=== PATIENT | male | born 2000 | race African-American/Black ===

== ENCOUNTER 2024-01-31 18:30 | Inpatient (IN) | payer BC ==
[2024-01-31] MEDS ORDERED: CEFTRIAXONE 1 G/50 ML PREMIX 50 ML IVPB ONE (20:00)
[2024-01-31] MEDS: ACETAMINOPHEN 1000 MG/100 ML BAG IVPB ONE (20:11)
[2024-01-31] MEDS: CEFTRIAXONE 1 G/50 ML PREMIX 50 ML IVPB ONE (20:11)
[2024-01-31] MEDS: SODIUM CHLORIDE 0.9% 500 ML INFUS.BAG IV ONE (20:11)
[2024-01-31 20:16] LABS: BASO % 0.4 % (0-2.0); EOS % 1.2 % (0-4.5); LYMPH % 11.1 % (8-40); MCH 27.3 pg (25.7-33.7); MCHC 33.2 g/dl (32.0-35.9); MEAN CELL VOLUME 82.1 fl (80-96); MEAN PLT VOLUME 9.2 fl (7.5-11.1); MONO % 7.6 % (3.8-10.2); NEUT % 79.7 % (42.8-82.8); PLATELET COUNT 420 10^3/uL (134-434); RBC 4.38 M/mm3 (4.00-5.60); RDW 13.1 % (11.9-15.9); WHITE BLOOD COUNT 18.9 K/mm3 (4.0-10.0)
[2024-01-31 20:20] LABS: VENOUS BASE EXCESS 1.9 mmol/L (-2-2); VENOUS O2 SATURATION 57.7 % (70-80); VENOUS PCO2 40.5 mmHg (38-52); VENOUS PH 7.43 (7.310-7.410)
[2024-01-31 20:49] LABS: POTASSIUM 4.4 mmol/L (3.5-5.1)
[2024-01-31 20:54] LABS: CALCIUM 9.3 mg/dL (8.5-10.1)
[2024-01-31 20:55] LABS: ALBUMIN 2.9 g/dl (3.4-5.0); BLOOD UREA NITROGEN 8.2 mg/dL (7-18)
[2024-01-31 20:59] LABS: BILIRUBIN,TOTAL 1.3 mg/dL (0.2-1); TOT PROT 7.3 g/dl (6.4-8.2)
[2024-01-31] MEDS ORDERED: DOXYCYCLINE HYCLATE 100 MG VIAL ONE (21:18)
[2024-01-31] MEDS: DOXYCYCLINE INJECTION 100 MG in DEXTROSE 5%-WATER 100 ML IVPB ONE (21:24)
[2024-02-01 00:34] LABS: PH,URINE 6.5 (5.0-8.0); URINE APPEARANCE CLEAR; URINE BILIRUBIN NEGATIVE (NEGATIVE); URINE COLOR YELLOW; URINE GLUCOSE (UA) NEGATIVE (NEGATIVE); URINE KETONE NEGATIVE (NEGATIVE); URINE LEUK ESTERASE NEGATIVE (NEGATIVE); URINE NITRITE NEGATIVE (NEGATIVE); URINE PROTEIN TRACE (NEGATIVE)
[2024-02-01] MEDS ORDERED: ENOXAPARIN NA (PORCINE) 40 MG/0.4 ML DISP.SYRIN SQ ONE (00:54)
[2024-02-01] MEDS: ENOXAPARIN NA (PORCINE) 40 MG/0.4 ML DISP.SYRIN SQ SCH (00:56)
[2024-02-01] MEDS ORDERED: MELATONIN 5 MG TABLETS PO PRN (01:09)
[2024-02-01] MEDS: guaiFENesin 200 MG/10 ML 10 ML UNIT-DOSE CUPS PO ONE (03:13)
[2024-02-01] MEDS: ACETAMINOPHEN 325 MG TABLET (FP) PO PRN (06:14)
[2024-02-01] MEDS: ALBUTEROL SO4 2.5/IPRATROPIUM 0.5 INH SOL 3 ML VIAL.NEB. NEB PRN (07:38)
[2024-02-01 08:45] LABS: BASO % 0.5 % (0-2.0); HEMATOCRIT 34.5 % (35.4-49); HEMOGLOBIN 11.4 GM/dL (11.7-16.9); LYMPH % 8.4 % (8-40); MCHC 32.9 g/dl (32.0-35.9); MEAN CELL VOLUME 82.2 fl (80-96); MEAN PLT VOLUME 9.9 fl (7.5-11.1); MONO % 6.4 % (3.8-10.2); NEUT % 82.7 % (42.8-82.8); PLATELET COUNT 392 10^3/uL (134-434); RDW 13.3 % (11.9-15.9); WHITE BLOOD COUNT 18.2 K/mm3 (4.0-10.0)
[2024-02-01 09:02] LABS: POTASSIUM 4.4 mmol/L (3.5-5.1)
[2024-02-01 09:03] LABS: MAGNESIUM 2.3 mg/dL (1.8-2.4)
[2024-02-01 09:04] LABS: ALBUMIN 2.8 g/dl (3.4-5.0)
[2024-02-01 09:07] LABS: BLOOD UREA NITROGEN 8.1 mg/dL (7-18); CALCIUM 9.2 mg/dL (8.5-10.1); CREATININE 0.8 mg/dL (0.55-1.3)
[2024-02-01 09:08] LABS: PHOSPHOROUS 4.4 mg/dL (2.5-4.9); TOT PROT 6.8 g/dl (6.4-8.2)
[2024-02-01 09:10] LABS: BILIRUBIN,TOTAL 1.2 mg/dL (0.2-1)
[2024-02-01] MEDS: methylPREDNISolone NA SUCC 40 MG/1 ML VIAL IVPUSH SCH (10:09)
[2024-02-01 14:10] LABS: HIV INTERPRETATION NEGATIVE (NEGATIVE)
[2024-02-01] MEDS: guaiFENesin 200 MG/10 ML 10 ML UNIT-DOSE CUPS PO PRN (23:55)
[2024-02-02 07:06] LABS: HEMATOCRIT 35.3 % (35.4-49); HEMOGLOBIN 11.3 GM/dL (11.7-16.9); MCH 26.9 pg (25.7-33.7); MEAN PLT VOLUME 9.2 fl (7.5-11.1); PLATELET COUNT 456 10^3/uL (134-434); RBC 4.21 M/mm3 (4.00-5.60); RDW 13.6 % (11.9-15.9); WHITE BLOOD COUNT 17.6 K/mm3 (4.0-10.0)
[2024-02-02 07:26] LABS: POTASSIUM 4.6 mmol/L (3.5-5.1)
[2024-02-02 07:27] LABS: CALCIUM 9.9 mg/dL (8.5-10.1)
[2024-02-02 07:28] LABS: BLOOD UREA NITROGEN 13.4 mg/dL (7-18)
[2024-02-02 07:31] LABS: CREATININE 0.9 mg/dL (0.55-1.3)
[2024-02-02 07:33] LABS: BILIRUBIN,TOTAL 0.9 mg/dL (0.2-1); TOT PROT 7.2 g/dl (6.4-8.2)
[2024-02-02 08:43] LABS: ANISOCYTOSIS 0; MACROCYTOSIS 0
[2024-02-03 08:53] LABS: BASO % 0.7 % (0-2.0); HEMATOCRIT 35.1 % (35.4-49); HEMOGLOBIN 11.2 GM/dL (11.7-16.9); MCHC 31.8 g/dl (32.0-35.9); MEAN CELL VOLUME 84.7 fl (80-96); MEAN PLT VOLUME 9.4 fl (7.5-11.1); MONO % 6.9 % (3.8-10.2); NEUT % 72.4 % (42.8-82.8); PLATELET COUNT 472 10^3/uL (134-434); RBC 4.14 M/mm3 (4.00-5.60); RDW 13.4 % (11.9-15.9); WHITE BLOOD COUNT 13.4 K/mm3 (4.0-10.0)
[2024-02-03 09:10] LABS: POTASSIUM 4.5 mmol/L (3.5-5.1)
[2024-02-03] MEDS: predniSONE 20 MG TABLET (UD) PO SCH (09:13)
[2024-02-03 09:16] LABS: CALCIUM 9.7 mg/dL (8.5-10.1)
[2024-02-03 09:17] LABS: ALBUMIN 2.9 g/dl (3.4-5.0)
[2024-02-03 09:20] LABS: CREATININE 0.8 mg/dL (0.55-1.3)
[2024-02-03 09:21] LABS: BILIRUBIN,TOTAL 0.8 mg/dL (0.2-1); TOT PROT 6.9 g/dl (6.4-8.2)
[2024-02-03 11:43] LABS: ANISOCYTOSIS 0; MACROCYTOSIS 0
[2024-02-03 13:25] VITALS: RESP 18
[2024-02-04 11:30] LABS: HEMATOCRIT 37.3 % (35.4-49); HEMOGLOBIN 12.3 GM/dL (11.7-16.9); MCH 28.2 pg (25.7-33.7); MCHC 32.9 g/dl (32.0-35.9); MEAN CELL VOLUME 85.5 fl (80-96); MEAN PLT VOLUME 9.2 fl (7.5-11.1); PLATELET COUNT 541 10^3/uL (134-434); RBC 4.37 M/mm3 (4.00-5.60); RDW 13.7 % (11.9-15.9); WHITE BLOOD COUNT 11.9 K/mm3 (4.0-10.0)
[2024-02-04 11:56] LABS: POTASSIUM 4.5 mmol/L (3.5-5.1)
[2024-02-04 11:58] LABS: CALCIUM 9.9 mg/dL (8.5-10.1)
[2024-02-04 11:59] LABS: ALBUMIN 3.1 g/dl (3.4-5.0); BLOOD UREA NITROGEN 13.2 mg/dL (7-18)
[2024-02-04 12:02] LABS: CREATININE 0.9 mg/dL (0.55-1.3)
[2024-02-04 12:04] LABS: BILIRUBIN,TOTAL 0.6 mg/dL (0.2-1); TOT PROT 7.6 g/dl (6.4-8.2)
[2024-02-04 13:05] LABS: ANISOCYTOSIS 0; HELMET CELLS 0; HOWELL-JOLLY BODIES 0; MACROCYTOSIS 0; OVALOCYTE 0; ROULEAU 0; SICKELED CELLS 0; TARGET CELLS 0; TEAR DROP CELLS 0; TOXIC GRANULATION 0
[2024-02-04 18:12] VITALS: BMI 44.5
[2024-02-05 08:46] LABS: BASO % 0.8 % (0-2.0); EOS % 0.9 % (0-4.5); HEMATOCRIT 34.5 % (35.4-49); LYMPH % 27.9 % (8-40); MCH 30.2 pg (25.7-33.7); MCHC 34.8 g/dl (32.0-35.9); MEAN CELL VOLUME 86.5 fl (80-96); MEAN PLT VOLUME 9.1 fl (7.5-11.1); MONO % 8.2 % (3.8-10.2); NEUT % 62.2 % (42.8-82.8); PLATELET COUNT 536 10^3/uL (134-434); RBC 3.99 M/mm3 (4.00-5.60); RDW 13.4 % (11.9-15.9)
[2024-02-05 09:09] LABS: POTASSIUM 4.7 mmol/L (3.5-5.1)
[2024-02-05 09:17] LABS: ALBUMIN 2.9 g/dl (3.4-5.0); BILIRUBIN,TOTAL 0.7 mg/dL (0.2-1); BLOOD UREA NITROGEN 13.1 mg/dL (7-18); CREATININE 0.9 mg/dL (0.55-1.3)
[2024-02-05 09:18] LABS: TOT PROT 6.9 g/dl (6.4-8.2)
[2024-02-05 09:19] LABS: CALCIUM 9.6 mg/dL (8.5-10.1)
[2024-02-05 13:50] LABS: BASO % 0.4 % (0-2.0); EOS % 0.5 % (0-4.5); HEMATOCRIT 39.3 % (35.4-49); HEMOGLOBIN 12.9 GM/dL (11.7-16.9); LYMPH % 15.8 % (8-40); MCH 27.4 pg (25.7-33.7); MCHC 32.9 g/dl (32.0-35.9); MEAN CELL VOLUME 83.4 fl (80-96); MONO % 5.5 % (3.8-10.2); NEUT % 77.8 % (42.8-82.8); PLATELET COUNT 732 10^3/uL (134-434); RBC 4.71 M/mm3 (4.00-5.60); RDW 13.6 % (11.9-15.9); WHITE BLOOD COUNT 12.6 K/mm3 (4.0-10.0)
[2024-02-05 13:55] LABS: INR 1.29 (0.83-1.09); PROTHROMBIN TIME (PATIENT) 14.7 SEC (9.7-13.0)
[2024-02-05 14:06] LABS: ALBUMIN 3.3 g/dl (3.4-5.0)
[2024-02-05 14:10] LABS: BILIRUBIN,DIRECT 0.3 mg/dL (0.0-0.2)
[2024-02-05 14:11] LABS: BILIRUBIN,TOTAL 0.6 mg/dL (0.2-1); TOT PROT 7.7 g/dl (6.4-8.2)
[2024-02-06 08:30] LABS: INR 1.21 (0.83-1.09); PROTHROMBIN TIME (PATIENT) 13.6 SEC (9.7-13.0)
[2024-02-06 08:34] LABS: BASO % 0.8 % (0-2.0); EOS % 0.9 % (0-4.5); HEMATOCRIT 38.2 % (35.4-49); HEMOGLOBIN 12.6 GM/dL (11.7-16.9); LYMPH % 26.6 % (8-40); MCH 27.7 pg (25.7-33.7); MCHC 33.1 g/dl (32.0-35.9); MEAN CELL VOLUME 83.5 fl (80-96); MEAN PLT VOLUME 8.9 fl (7.5-11.1); MONO % 8.2 % (3.8-10.2); NEUT % 63.5 % (42.8-82.8); PLATELET COUNT 619 10^3/uL (134-434); RBC 4.57 M/mm3 (4.00-5.60); RDW 13.8 % (11.9-15.9); WHITE BLOOD COUNT 14.9 K/mm3 (4.0-10.0)
[2024-02-06 09:12] LABS: ALBUMIN 3.2 g/dl (3.4-5.0)
[2024-02-06 09:15] LABS: BILIRUBIN,DIRECT 0.3 mg/dL (0.0-0.2)
[2024-02-06 09:17] LABS: BILIRUBIN,TOTAL 0.7 mg/dL (0.2-1); TOT PROT 7.2 g/dl (6.4-8.2)
[2024-02-06 13:00] LABS: POTASSIUM 4.4 mmol/L (3.5-5.1)
[2024-02-06 13:01] LABS: CALCIUM 9.9 mg/dL (8.5-10.1)
[2024-02-06 13:02] LABS: ALBUMIN 3.4 g/dl (3.4-5.0); BLOOD UREA NITROGEN 13.8 mg/dL (7-18)
[2024-02-06 13:06] LABS: BILIRUBIN,TOTAL 0.7 mg/dL (0.2-1); TOT PROT 7.9 g/dl (6.4-8.2)
[2024-02-06 15:19] VITALS: BP 128/92; PULSE 115; TEMP 98.4
[2024-02-07] MEDS ORDERED: predniSONE 10 MG TABLET (UD) PO SCH (10:00)
== END 2024-02-06 15:12 | disposition home or self-care (01) | DRG 871 ==
LOC: JER 18:30 → JERBED 21:17 → J7W 02-01 01:15
PROVIDERS: ADMIT Internal Medicine; ATTEND Nurse Practitioner Family
DX: A41.89 Other specified sepsis (principal); J18.9 Pneumonia, unspecified organism; J96.01 Acute respiratory failure with hypoxia; F84.0 Autistic disorder; Z68.41 Body mass index [BMI] 40.0-44.9, adult; K80.80 Other cholelithiasis without obstruction; K76.0 Fatty (change of) liver, not elsewhere classified; R79.89 Other specified abnormal findings of blood chemistry; E66.01 Morbid (severe) obesity due to excess calories; D72.829 Elevated white blood cell count, unspecified; Z88.0 Allergy status to penicillin
CPT/HCPCS: 0241U-QW; 36415; 71045-TC-FY; 71250-TC; 76705-TC; 80053; 80061; 80076; 81003; 82140; 82728; 82803; 83516; 83540; 83550; 83605; 83735; 84100; 85025; 85610; 86038; 86140; 86705; 86708; 86709; 86803; 87040; 87070; 87205; 87340; 87389; 87517; 87899; 93005; 93010; 94010; 94640; 99285-25; J0131